=== PATIENT | male | born 1975 | race Caucasian/White ===

== ENCOUNTER → 2018-05-09 15:24 | Outpatient (CLI) | payer OTHER, SELFPAY ==
--- NOTE | 2018-05-09 | DI.RAD.S_ITS ---
PROCEDURE: XR HIP W PEL IF DONE RT 2V INDICATIONS: HIP PAIN TECHNIQUE: AP pelvis with lateral view(s) of the right hip(s). COMPARISON: None. FINDINGS: Bones: No fractures or dislocations. Mild multilevel degenerative changes of the lumbar spine are noted. There are mild degenerative changes of the bilateral hip joints as evidenced by osteophyte formation. Pelvic ring appears intact. No suspicious bony lesions. Soft tissues: The visualized bowel gas pattern is normal. No suspicious soft tissue calcifications. IMPRESSION: Mild bilateral hip joint degenerative changes. Dictated by: Natanael Chapin M.D. on 05/09/2018 at 16:23 Approved by: Natanael Chapin M.D. on 05/09/2018 at 16:28
--- NOTE | 2018-05-09 | DI.RAD.S_ITS ---
PROCEDURE: XR KNEE RT 3V INDICATIONS: KNEE PAIN TECHNIQUE: 3 views of the knee were acquired. COMPARISON: None. FINDINGS: Bones: No acute fracture or dislocation. There are mild tricompartmental degenerative changes as evidenced by osteophyte formation. There is superior patellar enthesopathy. There are subcentimeter calcified joint bodies within the posterior right knee joint. Soft tissues: No joint effusion. IMPRESSION: Mild tricompartmental degenerative changes of the right knee. Dictated by: Natanael Chapin M.D. on 05/09/2018 at 16:29 Approved by: Natanael Chapin M.D. on 05/09/2018 at 16:34
--- NOTE | 2018-05-09 | DI.RAD.S_ITS ---
PROCEDURE: XR KNEE LT 3V INDICATIONS: KNEE PAIN TECHNIQUE: 3 views of the knee were acquired. COMPARISON: None. FINDINGS: Bones: No fractures or dislocations. There is superior patellar enthesopathy. There are mild tricompartmental degenerative changes of the left knee as evidenced by osteophyte formation. Soft tissues: No joint effusion. IMPRESSION: Mild tricompartmental degenerative changes of the left knee. Dictated by: Natanael Chapin M.D. on 05/09/2018 at 16:28 Approved by: Natanael Chapin M.D. on 05/09/2018 at 16:29
== END ==
PROVIDERS: Visit Provider Nurse Practitioner Family
DX: M25.551 Pain in right hip (principal); M16.0 Bilateral primary osteoarthritis of hip; M17.0 Bilateral primary osteoarthritis of knee; M25.562 Pain in left knee; M25.561 Pain in right knee
CPT/HCPCS: 73502; 73562

== ENCOUNTER → 2018-05-17 09:30 | Outpatient (CLI) | payer OTHER, SELFPAY ==
[2018-05-17 10:14] LABS: Hematocrit 42.5 % (41-53); Hemoglobin 14.7 g/dL (13.5-17.5); Mean Corpuscular HGB Conc 34.4 % (30-36); Mean Corpuscular Hemoglobin 30.5 PG (26-34); Mean Corpuscular Volume 88.4 fL (80-100); Platelet Count 220 X10^3/uL (150-400); Red Blood Cell Count 4.81 X10^6/uL (4.5-5.9); Red Cell Distribution Width 13.1 % (11.6-14.8); White Blood Cell Count 5.3 X10^3/uL (4.5-11.0)
[2018-05-17 10:36] LABS: Erythrocyte Sedimentation Rate 29 MM/HR (0-15)
[2018-05-17 10:41] LABS: Hemoglobin A1C% w Est Avg Glu 5.5 % (4.0-6.0)
[2018-05-17 10:43] LABS: Alanine Aminotransferase 43 IU/L (21-72); Albumin 4.2 g/dL (3.5-5.0); Albumin Globulin Ratio 1.6 (1.0-2.8); Alkaline Phosphatase 71 U/L (38-126); Aspartate Aminotransferase 24 IU/L (17-59); BUN Creatinine Ratio 21.4 (6-22); Bilirubin Total 0.7 mg/dL (0.2-1.3); Blood Urea Nitrogen 15 mg/dL (9-20); Calcium 9.1 mg/dL (8.4-10.2); Carbon Dioxide 29 mmol/L (22-32); Chloride 106 mmol/L (98-107); Cholesterol 215 mg/dL (140-199); Estimated Glomerular Filt Rate > 60.0 mL/min (>60); Globulin 2.7 g/dL (1.7-4.1); Glucose 108 mg/dL (70-100); HDL Cholesterol 46 mg/dL (40-60); HEMOLYSIS < 15 (0-50); LDL Cholesterol Calculated 149 mg/dL (<100); Potassium 4.1 mmol/L (3.4-5.1); Sodium 143 mmol/L (137-145); Total Protein 6.9 g/dL (6.3-8.2); Triglycerides 99 mg/dL (35-150)
[2018-05-17 11:27] LABS: Thyroid Stimulating Hormone 1.26 uIU/mL (0.47-4.68)
== END ==
PROVIDERS: PCP Nurse Practitioner Family; Visit Provider Nurse Practitioner Family
DX: R53.83 Other fatigue (principal); Z68.42 Body mass index [BMI] 45.0-49.9, adult; M25.50 Pain in unspecified joint; E78.5 Hyperlipidemia, unspecified
CPT/HCPCS: 36415; 80053; 80061; 83036; 84443; 85027; 85651

== ENCOUNTER → 2019-02-09 15:28 | Outpatient (CLI) | payer OTHER, SELFPAY ==
--- NOTE | 2019-02-09 | DI.RAD.S_ITS ---
PROCEDURE: XR WRIST RT MIN 3V INDICATIONS: Right WRIST PAIN TECHNIQUE: 4 views of the wrist were acquired. COMPARISON: None. FINDINGS: Bones: No fractures or dislocations. No suspicious bony lesions. Scaphoid view: No visualized scaphoid fracture. Soft tissues: No suspicious soft tissue calcifications. IMPRESSION: No visualized acute fracture or dislocation. However, if clinical concern and/or pain persist, short interval imaging followup in 7-10 days is recommended, as occult injury cannot be definitively excluded. Dictated by: Yoli Boston M.D. on 02/09/2019 at 17:25 Approved by: Yoli Boston M.D. on 02/09/2019 at 17:26
== END ==
PROVIDERS: PCP Nurse Practitioner Family; Visit Provider Internal Medicine
DX: M25.531 Pain in right wrist (principal)
CPT/HCPCS: 73110

== ENCOUNTER 2019-02-23 18:40 | Emergency (ER) | payer OTHER, SELFPAY ==
[2019-02-23 18:58] VITALS: BP 177/96; PULSE 67; RESP 20; TEMP 36.3; O2SAT 94
[2019-02-23 19:51] VITALS: BP 182/85; PULSE 66; RESP 16; O2SAT 95
[2019-02-23 20:00] VITALS: BP 160/66; PULSE 72; RESP 18; O2SAT 96
[2019-02-23 20:18] LABS: Add Manual Diff / Slide Review NO; Basophils Absolute Auto 0 /uL (0-100); Basophils Percent Auto 0.3 % (0-2); Eosinophils Absolute Auto 100 /uL (0-450); Eosinophils Percent Auto 1.2 % (2-4); Hematocrit 40.4 % (41-53); Hemoglobin 13.8 g/dL (13.5-17.5); Lymphocytes Absolute Auto 1000 /uL (1100-4500); Lymphocytes Percent Auto 14.5 % (25-40); Mean Corpuscular HGB Conc 34.2 % (30-36); Mean Corpuscular Hemoglobin 30.2 PG (26-34); Mean Corpuscular Volume 88.5 fL (80-100); Monocytes Absolute Auto 500 /uL (0-900); Monocytes Percent Auto 7.7 % (3-14); Neutrophils Absolute Auto 5200 /uL (1500-7000); Neutrophils Percent Auto 76.3 % (50-75); Platelet Count 198 X10^3/uL (150-400); Red Blood Cell Count 4.56 X10^6/uL (4.5-5.9); Red Cell Distribution Width 12.8 % (11.6-14.8); White Blood Cell Count 6.9 X10^3/uL (4.5-11.0)
--- NOTE | 2019-02-23 20:27 | PC.NURSE ---
Pt reports a headache related to right tooth pain. He states the dentist will not pull his tooth with hypertension. He was seen at the [facility] and told to come here. He states he has abx on order at [facility] but hasnt been able to pick them up. He reports he has a headache and believes it is related to his tooth pain. Provider orderes recieved. Lab called and ever bloods.
[2019-02-23 20:31] LABS: Blood Urea Nitrogen 21 mg/dL (9-20); Calcium 8.9 mg/dL (8.4-10.2); Carbon Dioxide 29 mmol/L (22-32); Chloride 104 mmol/L (98-107); Estimated Glomerular Filt Rate > 60.0 mL/min (>60); Glucose 110 mg/dL (70-100); HEMOLYSIS < 15 (0-50); Sodium 140 mmol/L (137-145)
--- NOTE | 2019-02-23 20:33 | PC.NURSE ---
drawn by lab
--- NOTE | 2019-02-23 20:36 | ED_ITS ---
HPI - General Adult General Chief complaint: Hypertension Stated complaint: High Blood Pressure, sent from [facility] Time Seen by Provider: 02/23/19 20:02 Source: patient Mode of arrival: Ambulatory Limitations: no limitations History of Present Illness HPI narrative: Patient is a 43-year-old male here for evaluation of h ypertension. Patient states that he has been on antihypertensive medications in the past. He has not been on them for the past several years. He states that he is unsure whether not he stop taking them on his own or if he was taken off by his primary provider. He states that on 2 prior recent occasions he went to the dentist to have dental work when they took his blood pressure the systolic blood pressures greater than 200. He was told that he cannot have any dental procedures done until his blood pressure has been treated. He has not called his primary doctor for this. He went to the walk-in clinic and they told him to come to the emergency department. Related Data Previous Rx's Medication Instructions Recorded lisinopril 10 mg PO DAILY #30 tab 02/23/19 Allergies Allergy/AdvReac Type Severity Reaction Status Date / Time codeine AdvReac Verified 02/23/19 19:01 Review of Systems Constitutional Constitutional: Denies fever(s) and Denies headache(s) ENT Ears, Nose, Mouth, and Throat: Denies headache(s) Comments: Dental pain Cardiovascular Cardiovascular: Denies chest pain and Denies dyspnea Respiratory Respiratory: Denies dyspnea Gastrointestinal Gastrointestinal: Denies abdominal pain Musculoskeletal Musculoskeletal: Denies myalgias and Denies arthralgias Integumentary/Breasts Skin/Breast: Denies lesions and Denies rash Neurologic Neurologic: Denies behavioral changes and Denies headache(s) Psychiatric Psychiatric: Denies behavioral changes Hematologic/Lymphatic Hematologic/Lymphatic: Denies easy bleeding and Denies easy bruising PFSH Medical History Hypertension (Acute) Social History Smoking Status: Never smoker Social History Smoking Status: Never smoker Exam Initial Vital Signs Initial Vital Signs: Vital Signs Temperature 97.4 F L 02/23/19 18:58 Pulse Rate 67 02/23/19 18:58 Respiratory Rate 20 02/23/19 18:58 Blood Pressure 177/96 H 02/23/19 18:58 Pulse Oximetry 94 02/23/19 18:58 Const General: cooperative, comfortable and well developed Orientation: alert, awake and oriented x3 HENMT Head: normal to inspection and normocephalic Teeth and gingiva: caries Resp Effort & Inspection: normal respiratory effort Auscultation: clear to auscultation bilaterally Cardio Rate: regular rate Rhythm: regular rhythm Skin Lesions: no lesions Rashes: no rashes Neuro General: alert, awake and oriented x3 Cognition: normal cognition Speech: speech normal Gait: normal gait Extrem General: normal to inspection and capillary refill normal Psych Appearance: grossly normal and well kempt Course Orders Ordered: ED Orders 02/23/19 20:09 Basic Metabolic Panel Stat Complete Blood Count AUTO DIFF Stat Troponin I Stat Discontinued Medications Hydrocodone Bitart/Acetaminophen ([place] 5/325) 1 tab PO NOW ONE Stop: 02/23/19 20:50 Last Admin: 02/23/19 21:03 Dose: 1 tab Documented by: JAYSON Vital Signs Vital signs: Vital Signs - 8 hr 02/23/19 18:58 02/23/19 19:51 02/23/19 20:00 Temperature 97.4 F L Pulse Rate 67 66 72 Respiratory Rate 20 16 18 Blood Pressure 177/96 H Blood Pressure [Left Arm] 182/85 H 160/66 H Pulse Oximetry 94 95 96 02/23/19 21:23 Temperature Pulse Rate 66 Respiratory Rate 19 Blood Pressure 175/87 H Blood Pressure [Left Arm] Pulse Oximetry 96 Medical Decision Making Lab Data Lab results reviewed: Yes I reviewed the patient's lab results. Result diagrams: 02/23/19 20:09 02/23/19 20:09 Labs: Lab Results 02/23/19 02/23/19 02/23/19 Range/Units 20:09 20:09 20:09 WBC 6.9 (4.5-11.0) X10^3/uL RBC 4.56 (4.5-5.9) X10^6/uL Hgb 13.8 (13.5-17.5) g/dL Hct 40.4 L (41-53) % MCV 88.5 (80-100) fL MCH 30.2 (26-34) PG MCHC 34.2 (30-36) % RDW 12.8 (11.6-14.8) % Plt Count 198 (150-400) X10^3/uL Neut % (Auto) 76.3 H (50-75) % Lymph % (Auto) 14.5 L (25-40) % [place] % (Auto) 7.7 (3-14) % Eos % (Auto) 1.2 L (2-4) % Baso % (Auto) 0.3 (0-2) % Neut # (Auto) 5200 (4964-5366) /uL Lymph # (Auto) 1000 L (3301-5777) /uL [place] # (Auto) 500 (0-900) /uL Eos # (Auto) 100 (0-450) /uL Baso # (Auto) 0 (0-100) /uL Sodium 140 (137-145) mmol/L Potassium 4.0 (3.4-5.1) mmol/L Chloride 104 (98-107) mmol/L Carbon Dioxide 29 (22-32) mmol/L BUN 21 H (9-20) mg/dL Creatinine 0.60 L (0.66-1.25) mg/dL Estimated GFR > 60.0 (>60) mL/min BUN/Creatinine Ratio 35.0 H (6-22) Glucose 110 H (70-100) mg/dL Calcium 8.9 (8.4-10.2) mg/dL Troponin I < 0.012 (0.01-0.034) ng/mL MDM Narrative Medical decision making narrative: The patient has been on hypertensive medications the past. He is hypertensive today. Have low suspicion for end- organ dysfunction. Will start him on low-dose lisinopril. Informed him that this may not cause the necessary decrease in his blood pressure needed by his dentist in order to proceed with any procedures. I did inform that we needed to start low with his blood pressure and have it reduced slowly. Informed him he did need to contact his primary doctor for further evaluation and treatment. He expressed understanding and agreement with plan. Discharge Plan Departure Patient Disposition: Home Clinical Impression: Hypertension Qualifiers: Hypertension type: unspecified Qualified Code(s): I10 - Essential (primary) hypertension Discharge Date/Time: 02/23/19 21:25 Instructions: DI for High Blood Pressure Activity Restrictions/Additional Instructions: Take the medication as directed. You do need to contact your primary care provider tomorrow for a follow up. Return to the ER for any new or worsening s ymptoms. Prescriptions: New lisinopril 10 mg tablet 10 mg PO DAILY Qty: 30 RF: 0 Referrals: Paris Donis ARNP [Primary Care Provider] -
[2019-02-23 20:43] LABS: Troponin I < 0.012 ng/mL (0.01-0.034)
[2019-02-23] MEDS: HYDROCODONE/ACET 5/325 TABLET 1 TAB PO (21:03)
[2019-02-23 21:23] VITALS: BP 175/87; PULSE 66; RESP 19; O2SAT 96
== END 2019-02-23 21:25 | disposition home or self-care (01) ==
PROVIDERS: Emergency Provider Emergency Medicine; PCP Nurse Practitioner Family
DX: I10 Essential (primary) hypertension (principal)
CPT/HCPCS: 36415; 80048; 84484; 85025; 99282; 99283

== ENCOUNTER → 2019-04-10 07:48 | Outpatient (CLI) | payer OTHER, SELFPAY ==
[2019-04-10 09:06] LABS: Hemoglobin A1C% w Est Avg Glu 5.4 % (4.0-6.0)
[2019-04-10 09:16] LABS: Alanine Aminotransferase 66 IU/L (<50); Albumin 4.2 g/dL (3.5-5.0); Albumin Globulin Ratio 1.9 (1.0-2.8); Alkaline Phosphatase 89 U/L (38-126); Aspartate Aminotransferase 38 IU/L (17-59); BUN Creatinine Ratio 33.3 (6-22); Bilirubin Total 0.6 mg/dL (0.2-1.3); Blood Urea Nitrogen 20 mg/dL (9-20); Calcium 8.9 mg/dL (8.4-10.2); Carbon Dioxide 28 mmol/L (22-32); Chloride 106 mmol/L (98-107); Cholesterol 219 mg/dL (140-199); Estimated Glomerular Filt Rate > 60.0 mL/min (>60); Globulin 2.2 g/dL (1.7-4.1); Glucose 117 mg/dL (70-100); HDL Cholesterol 44 mg/dL (40-60); HEMOLYSIS < 15 (0-50); LDL Cholesterol Calculated 156 mg/dL (<100); Potassium 4.3 mmol/L (3.4-5.1); Sodium 141 mmol/L (137-145); Total Protein 6.4 g/dL (6.3-8.2); Triglycerides 97 mg/dL (35-150); VLDL Cholesterol Calculated 19 mg/dL (2-30)
[2019-04-10 09:54] LABS: Creatinine Urine Random 208.3 mg/dL
[2019-04-10 09:58] LABS: Microalbumi Creatinin Ratio Ur 6.2 ug/mg CR (<30); Microalbumin Urine Random 1.3 mg/dL (0-1.6)
== END ==
PROVIDERS: PCP Nurse Practitioner Family; Visit Provider Nurse Practitioner Family
DX: I10 Essential (primary) hypertension (principal); R73.01 Impaired fasting glucose
CPT/HCPCS: 36415; 80053; 80061; 82043; 82570; 83036; 83735

== ENCOUNTER → 2019-04-17 15:42 | Outpatient (CLI) | payer OTHER, SELFPAY ==
[2019-04-23 05:09] LABS: Magnesium, RBC 5.5 mg/dL (4.0-6.4)
== END ==
PROVIDERS: PCP Nurse Practitioner Family; Visit Provider Nurse Practitioner Family
DX: I10 Essential (primary) hypertension (principal); R73.01 Impaired fasting glucose
CPT/HCPCS: 83735

== ENCOUNTER → 2019-06-04 11:18 | Outpatient (CLI) | payer OTHER, SELFPAY | PROVIDERS: PCP Nurse Practitioner Family; Visit Provider Physician Assistant | DX: R30.0 Dysuria (principal) | CPT/HCPCS: 87077; 87086; 87186 ==

== ENCOUNTER → 2019-10-22 08:08 | Outpatient (CLI) | payer OTHER, SELFPAY | PROVIDERS: PCP Nurse Practitioner Family; Referring Provider Family Medicine; Visit Provider Internal Medicine | DX: R07.89 Other chest pain (principal); R06.09 Other forms of dyspnea; R53.83 Other fatigue; R03.0 Elevated blood-pressure reading, without diagnosis of hypertension | CPT/HCPCS: 93017 ==

== ENCOUNTER → 2020-01-04 15:16 | Outpatient (CLI) | payer OTHER, SELFPAY ==
[2020-01-05 16:25] LABS: COVID19 Sendout Not Detected (Not Detect)
== END ==
PROVIDERS: PCP Nurse Practitioner Family; Visit Provider Physician Assistant
DX: Z11.59 Encounter for screening for other viral diseases (principal)
CPT/HCPCS: 87635

== ENCOUNTER → 2020-07-02 10:16 | Outpatient (CLI) | payer OTHER, SELFPAY ==
[2020-07-02 12:02] LABS: Hemoglobin A1C% w Est Avg Glu 6.2 % (4.0-6.0)
[2020-07-02 12:09] LABS: BUN Creatinine Ratio 22.7 (6-22); Blood Urea Nitrogen 17 mg/dL (9-20); Carbon Dioxide 30 mmol/L (22-32); Chloride 103 mmol/L (98-107); Estimated Glomerular Filt Rate > 60.0 mL/min (>60); Glucose 128 mg/dL (70-100); HEMOLYSIS < 15 (0-50); Potassium 4.4 mmol/L (3.4-5.1); Sodium 137 mmol/L (137-145)
== END ==
PROVIDERS: PCP Nurse Practitioner Family; Referring Provider Internal Medicine; Visit Provider Internal Medicine
DX: R73.03 Prediabetes (principal); M17.11 Unilateral primary osteoarthritis, right knee; M17.12 Unilateral primary osteoarthritis, left knee; E66.01 Morbid (severe) obesity due to excess calories
CPT/HCPCS: 36415; 80048; 83036

== ENCOUNTER → 2020-09-02 15:26 | Outpatient (CLI) | payer OTHER, SELFPAY ==
[2020-09-02] MEDS: COVID-19 VACC #1, MRNA(MOD) 100 MCG/0.5 ML VIAL IM (15:31)
== END ==
PROVIDERS: PCP Nurse Practitioner Family; Visit Provider Internal Medicine
DX: Z23 Encounter for immunization (principal)
CPT/HCPCS: 0011A; 91301

== ENCOUNTER → 2020-09-30 15:09 | Outpatient (CLI) | payer OTHER, SELFPAY ==
[2020-09-30] MEDS: COVID-19 VACC #2, MRNA(MOD) 100 MCG/0.5 ML VIAL IM (15:15)
== END ==
PROVIDERS: PCP Nurse Practitioner Family; Visit Provider Internal Medicine
DX: Z23 Encounter for immunization (principal)
CPT/HCPCS: 0012A; 91301

== ENCOUNTER → 2020-12-24 08:50 | Outpatient (CLI) | payer OTHER, SELFPAY ==
[2020-12-24 10:48] LABS: Cholesterol 190 mg/dL (140-199); HDL Cholesterol 47 mg/dL (40-60); LDL Cholesterol Calculated 120 mg/dL (<100); Triglycerides 113 mg/dL (35-150)
[2020-12-24 10:54] LABS: Hemoglobin A1C% w Est Avg Glu 5.8 % (4.0-6.0)
== END ==
PROVIDERS: PCP Internal Medicine; Referring Provider Internal Medicine; Visit Provider Internal Medicine
DX: R73.03 Prediabetes (principal)
CPT/HCPCS: 80061; 83036

== ENCOUNTER → 2021-01-30 16:05 | Outpatient (CLI) | payer OTHER, SELFPAY ==
[2021-01-30 17:28] LABS: Cholesterol 194 mg/dL (140-199); HDL Cholesterol 63 mg/dL (40-60); LDL Cholesterol Calculated 105 mg/dL (<100); Triglycerides 130 mg/dL (35-150)
[2021-01-30 17:30] LABS: Hemoglobin A1C% w Est Avg Glu 5.7 % (4.0-6.0)
== END ==
PROVIDERS: PCP Internal Medicine; Referring Provider Internal Medicine; Visit Provider Internal Medicine
DX: R73.03 Prediabetes (principal)
CPT/HCPCS: 36415; 80061; 83036

== ENCOUNTER → 2022-10-24 07:49 | Outpatient (CLI) | payer SELFPAY ==
[2022-10-24 08:57] LABS: Influenza A - CEPHEID Flu A NEGATIVE (NEGATIVE); Influenza B - CEPHEID Flu B NEGATIVE (NEGATIVE); Respiratory Syncytial Virus Negative (Negative)
[2022-10-24 09:11] LABS: COVID-19 CEPHEID 4-PLEX PCR Negative (Negative)
== END ==
PROVIDERS: Family Provider Internal Medicine; PCP Internal Medicine; Visit Provider Nurse Practitioner Family
DX: J02.9 Acute pharyngitis, unspecified (principal); Z20.822 Contact with and (suspected) exposure to COVID-19
CPT/HCPCS: 0241U; 87070

== ENCOUNTER → 2023-01-07 14:07 | Outpatient (CLI) | payer OTHER, SELFPAY ==
--- NOTE | 2023-01-07 14:11 | DI.RAD.S_ITS ---
PROCEDURE: XR KNEE LT 3V INDICATIONS: KNEE PAIN TECHNIQUE: 3 views of the knee were acquired. COMPARISON: [facility], CR, XR KNEE RT 3V, 05/09/2018, 15:41. FINDINGS: Bones: Ngyk-eh-ywuzdnfw degenerative changes, with joint space narrowing more pronounced in the medial compartment. Osteophytes are also present. No displaced fracture or dislocation. Patellar enthesopathy. Soft tissues: Possible mild joint fluid. No suspicious calcifications. IMPRESSION: Hwlr-bb-htvmptvq degenerative changes, slightly progressed compared to 2018. If there is high concern for further derangement, consider MRI evaluation. Dictated by: Migue García M.D. on 01/07/2023 at 15:25 Approved by: Migue García M.D. on 01/07/2023 at 15:25
== END ==
PROVIDERS: Family Provider Internal Medicine; PCP Internal Medicine; Referring Provider Internal Medicine; Visit Provider Internal Medicine
DX: M76.52 Patellar tendinitis, left knee (principal); M25.562 Pain in left knee; G89.29 Other chronic pain
CPT/HCPCS: 73562

== ENCOUNTER → 2023-01-10 15:09 | Outpatient (CLI) | payer OTHER, SELFPAY | PROVIDERS: Family Provider Internal Medicine; PCP Internal Medicine; Referring Provider Internal Medicine; Visit Provider Internal Medicine | DX: J45.20 Mild intermittent asthma, uncomplicated (principal); J98.8 Other specified respiratory disorders | CPT/HCPCS: 94060; 94726; 94729 ==

== ENCOUNTER 2023-01-10 23:37 | Emergency (ER) | payer OTHER, SELFPAY ==
[2023-01-10 23:43] VITALS: BP 128/75; PULSE 80; RESP 15; TEMP 36.4; O2SAT 99; BMI 50.1
== END 2023-01-11 00:01 | disposition left against medical advice (07) ==
PROVIDERS: Emergency Provider Emergency Medicine; Family Provider Internal Medicine; PCP Internal Medicine
CPT/HCPCS: 99281

== ENCOUNTER → 2023-01-11 12:35 | Outpatient (CLI) | payer OTHER, SELFPAY ==
--- NOTE | 2023-01-11 12:37 | DI.RAD.S_ITS ---
PROCEDURE: XR LUMBAR SPINE 2-3V INDICATIONS: Back pain TECHNIQUE: 3 views of the lumbar spine were acquired. COMPARISON: None. FINDINGS: Bones: 5 bou-epl-gqjnffv vertebrae are present. Small vertebral body osteophytes. There is normal bony alignment. No vertebral body compression fractures. No suspicious bony lesions. Soft tissues: Overlying bowel gas pattern is normal. No suspicious soft tissue calcifications. IMPRESSION: Zlzf-sy-isocqoau degenerative changes in the lumbar spine. Somewhat early onset. Dictated by: Tejas Car M.D. on 01/11/2023 at 14:26 Approved by: Tejas Car M.D. on 01/11/2023 at 14:27
== END ==
PROVIDERS: Family Provider Internal Medicine; PCP Internal Medicine; Referring Provider Nurse Practitioner Family; Visit Provider Nurse Practitioner Family
DX: M47.816 Spondylosis without myelopathy or radiculopathy, lumbar region (principal); M54.41 Lumbago with sciatica, right side; M54.42 Lumbago with sciatica, left side
CPT/HCPCS: 72100

== ENCOUNTER → 2024-07-09 16:14 | Outpatient (ROUT) | payer OTHER, SELFPAY ==
[2024-07-09 17:01] LABS: Influenza A - CEPHEID Flu A NEGATIVE (NEGATIVE); Influenza B - CEPHEID Flu B NEGATIVE (NEGATIVE); Respiratory Syncytial Virus Negative (Negative)
[2024-07-09 17:48] LABS: COVID-19 CEPHEID 4-PLEX PCR Negative (Negative)
== END ==
PROVIDERS: Family Provider Internal Medicine; PCP Internal Medicine; Visit Provider Family Medicine
DX: J02.9 Acute pharyngitis, unspecified (principal); R05.1 Acute cough; R50.9 Fever, unspecified
CPT/HCPCS: 0241U

== ENCOUNTER → 2024-07-10 14:16 | Outpatient (CLI) | payer OTHER, SELFPAY | LOC: LAB 14:17 | PROVIDERS: Family Provider Internal Medicine; PCP Internal Medicine; Referring Provider Internal Medicine; Visit Provider Internal Medicine | DX: R73.03 Prediabetes (principal) | CPT/HCPCS: 36415; 83036 ==

== ENCOUNTER → 2024-07-14 12:03 | Outpatient (CLI) | payer OTHER, SELFPAY ==
--- NOTE | 2024-07-14 12:07 | DI.RAD.S_ITS ---
PROCEDURE: XR CHEST 2V INDICATIONS: shortness of breath URI TECHNIQUE: 2 views of the chest were acquired. COMPARISON: None. FINDINGS: Surgical changes and devices: None. Lungs and pleura: Multifocal ground-glass opacification, primarily involving the lower lobe posterior segments. No pleural effusions or pneumothorax. Mediastinum: Mediastinal contours are normal. Heart size is normal. Bones and chest wall: No suspicious bony abnormalities. Soft tissues appear unremarkable. IMPRESSION: Multifocal lower lobe posterior segmental ground-glass opacification, which may represent pneumonia. Dictated by: Florin Becker M.D. on 07/14/2024 at 14:33 Approved by: Florin Becker M.D. on 07/14/2024 at 14:33
== END ==
PROVIDERS: Family Provider Internal Medicine; PCP Internal Medicine; Referring Provider Registered Nurse; Visit Provider Registered Nurse
DX: J06.9 Acute upper respiratory infection, unspecified (principal); R05.1 Acute cough; R06.00 Dyspnea, unspecified
CPT/HCPCS: 0241U; 71046

== ENCOUNTER → 2024-07-14 12:08 | Outpatient (ROUT) | payer OTHER, SELFPAY ==
[2024-07-14 12:53] LABS: COVID-19 CEPHEID 4-PLEX PCR Negative (Negative); Influenza A - CEPHEID Flu A NEGATIVE (NEGATIVE); Influenza B - CEPHEID Flu B NEGATIVE (NEGATIVE); Respiratory Syncytial Virus Negative (Negative)
== END ==
PROVIDERS: Family Provider Internal Medicine; PCP Internal Medicine; Visit Provider Registered Nurse
DX: R05.1 Acute cough (principal); R06.00 Dyspnea, unspecified
CPT/HCPCS: 0241U

== ENCOUNTER → 2024-09-24 06:34 | Outpatient (CLI) | payer OTHER, SELFPAY ==
--- NOTE | 2024-09-24 06:36 | DI.US.S_ITS ---
PROCEDURE: US CAROTID DOPPLER BI INDICATIONS: DIZZINESS WITH EXERTION TECHNIQUE: Color and pulse Doppler interrogation was performed of both carotid systems, with image documentation and velocity measurements. COMPARISON: None. FINDINGS: Stenosis calculations are based on SRU (Society of Radiologists in Ultrasound) criteria. Right side: Brachial blood pressure: 121/72 mm Hg. Common carotid artery peak systolic velocity: 142 cm/sec. Internal carotid artery peak systolic velocity: 115 cm/sec. Internal carotid artery end diastolic velocity: 39 cm/sec. External carotid artery peak systolic velocity: 173 cm/sec. ICA/CCA peak systolic ratio: 0.8 . Gallardo scale imaging description: Minimal atherosclerotic plaques Percent internal carotid artery stenosis: Less than 50% stenosis . Vertebral artery: Flow direction is antegrade. Left side: Brachial blood pressure: 114/73 mm Hg. Common carotid artery peak systolic velocity: 121 cm/sec. Internal carotid artery peak systolic velocity: 108 cm/sec. Internal carotid artery end diastolic velocity: 36 cm/sec. External carotid artery peak systolic velocity: 186 cm/sec. ICA/CCA peak systolic ratio: 0.9 . Gallardo scale imaging description: Mild atherosclerotic plaques Percent internal carotid artery stenosis: Less than 50% . Vertebral artery: Flow direction is antegrade. IMPRESSION: 1. In the right carotid artery, there is less than 50% stenosis based on peak systolic velocity criteria. 2. In the left carotid artery, there is less than 50% stenosis based on peak systolic velocity criteria. 3. Antegrade vertebral arteries. Dictated by: Jose Boogie M.D. on 09/24/2024 at 11:58 Approved by: Jose Boogie M.D. on 09/24/2024 at 12:00
== END ==
PROVIDERS: Family Provider Internal Medicine; PCP Registered Nurse; Referring Provider Registered Nurse; Visit Provider Registered Nurse
DX: I65.23 Occlusion and stenosis of bilateral carotid arteries (principal); R42 Dizziness and giddiness
CPT/HCPCS: 93880

== ENCOUNTER → 2024-10-30 15:53 | Outpatient (CLI) | payer OTHER, SELFPAY ==
--- NOTE | 2024-11-04 13:49 | DIAB.MNT ---
Initial Diabetes Medical Nutrition Therapy Assessment Name: Tone Gonzales Ta Date: 10/30/24 Time: 4-5p Dx: Type II Diabetes Provider: Day Wayne presents for initial DM visit. Newly dx with T2DM. Was previously on Semaglutide for wt loss with program 2 years ago with success at 1mg dose. Just recently restarted med with PCP for T2DM management, current dose 0.5mg with reported goal of 2mg. Endorses frequent urination, though has improved. Was 4-5x per day. UTD on eye appt Some constipation over the last couple days. Reports he was previously eating smoothies with berries, yogurt, and +/- protein powder. Endorses sugared energy drink daily at 60-70g CHO per serving. Minimal snacking since restarting GLP1. Reports some nausea and dizziness today, but attributes this to the heat. Works in construction. Lives with and has dinner with mother. Diet Recall: 930a: leftovers or rare cereal (harish crispies) with milk 12p: burger and small frey OR leftovers 5p: [employer] lasagna OR chix with corn on the franco and baked beans OR 2c chili OR roast with potatoes x 2c and carrots water: 4-6x 16oz Sometimes juice or rare soda Energy drink sweetened - daily Anthropometrics: Ht: 68 Wt: 340# Physical Activity: No program. Active at work. Self-Monitoring Blood Glucose: None at this time. Diabetes Medications: 1000mg Metformin XR daily 0.5mg Semaglutide per week Pertinent Labs: hgA1c: 6.7% 09/2024 Past Medical History: (Last Reviewed 04/01/23 @ 16:11 by Lilli Gibson PA-C) Hypertension Sciatica Nutrition Rx: Carbohydrates: Daily: Meal: Snack: Nutrition Diagnosis: - Food and nutrition related knowledge deficit r/t newly dx T2DM aeb hgA1c >6.5% and pt report - Undesirable food choice r/t stage of change preparation aeb pt report of high CHO energy drink - Predicted excessive CHO intake r/t nutrition knowledge deficit aeb diet recall Intervention: This participant was very receptive. Provided appropriate educational handouts. Discussed the following topics: Completed intake assessment. Discussed barriers to care. Pathophysiology of T2DM HgA1c, its correlation to blood glucose numbers, and rationale for goal Potential for self monitoring BG Plate Method, impact of macronutrients on blood sugar, meal timing, carbohydrate counting, pairing macronutrients and spreading out carbohydrates for better blood glucose management Recommended servings for carbohydrates at meals and snacks Heart health nutrition Brainstormed appropriate meal plan based on food preferences Role of physical activity a Created SMART goals for patient self-care and success. Goals: Change to sf option of energy drink Switch to HN cheerios Try Romansh yogurt in smoothie Try smoothie for breakfast Follow-up: SANDRA REED follow-up in 3-4 weeks Myla Carter RDN, DEREK Certified Diabetes Care and Sas Analyst P: [phone] Thank you for this referral
== END ==
LOC: DIET 15:54
PROVIDERS: Family Provider Internal Medicine; PCP Registered Nurse; Referring Provider Registered Nurse
DX: E11.9 Type 2 diabetes mellitus without complications (principal); Z79.85 Long-term (current) use of injectable non-insulin antidiabetic drugs; K59.00 Constipation, unspecified; Z79.84 Long term (current) use of oral hypoglycemic drugs; Z71.3 Dietary counseling and surveillance
CPT/HCPCS: 97802

== ENCOUNTER → 2025-04-16 12:11 | Outpatient (CLI) | payer OTHER, SELFPAY ==
[2025-04-16 12:44] LABS: Add Manual Diff / Slide Review NO; Hematocrit 43.5 % (41-53); Hemoglobin 14.7 g/dL (13.5-17.5); Lymphocytes Absolute Auto 1600 /uL (1100-4500); Mean Corpuscular HGB Conc 33.7 % (30-36); Mean Corpuscular Hemoglobin 29.4 PG (26-34); Mean Corpuscular Volume 87.3 fL (80-100); Platelet Count 259 X10^3/uL (150-400)
[2025-04-16 12:54] LABS: Hemoglobin A1C% w Est Avg Glu 5.5 % (4.0-6.0)
[2025-04-16 13:14] LABS: Blood Urea Nitrogen 17 mg/dL (9-20); Calcium 9.1 mg/dL (8.4-10.2); Carbon Dioxide 25 mmol/L (22-32); Chloride 106 mmol/L (98-107); Estimated Glomerular Filt Rate > 60 mL/min (>60); Glucose 119 mg/dL (70-99); HEMOLYSIS < 15 (0-50); Potassium 4.0 mmol/L (3.4-5.1); Sodium 140 mmol/L (137-145)
== END ==
PROVIDERS: Family Provider Internal Medicine; PCP Registered Nurse; Referring Provider Registered Nurse; Visit Provider Registered Nurse
DX: M17.2 Bilateral post-traumatic osteoarthritis of knee (principal)
CPT/HCPCS: 36415; 80048; 83036; 85025